=== PATIENT | female | born 1945 | race African-American/Black ===

== ENCOUNTER 2017-05-26 16:10 | Emergency (ER) | payer OTHER, MEDICAID ==
[~2017-05-26] VITALS: Ht 162.6 cm; Wt 108.9 kg
[~2017-05-26 16:10] MED LIST: BENA10TA4; FURO-570; OMEP20EC4; [UNRECOGNIZED DRUG - CODE]
[2017-05-26 16:20] VITALS: BP 136/93
[2017-05-26 16:59] LABS: BASOPHILS # (AUTO) 0.3 K/uL (0.00-0.22); EOSINOPHILS # (AUTO) 0.1 K/uL (0-0.4); HEMATOCRIT 41.4 % (36-48); HEMOGLOBIN 13.3 g/dL (12.0-16.0); LYMPHOCYTES # (AUTO) 1.5 K/uL (2.5-16.5); MEAN CORPUSCULAR HEMOGLOBIN 27 pg (27-31); MEAN CORPUSCULAR HGB CONC 32 g/dL (33-37); MEAN CORPUSCULAR VOLUME 85 fL (80-94); MONOCYTES # (AUTO) 0.5 K/uL (0.8-1.0); NEUTROPHILS # (AUTO) 3.6 K/uL (1.8-7.7); PLATELET COUNT (AUTO) 175 K/uL (140-450); RED BLOOD CELL COUNT(AUTO) 4.89 MIL/uL (4.20-5.40); RED CELL DISTRIBUTION WIDTH 14.6 % (11.6-13.7)
[2017-05-26 17:12] LABS: CALCIUM 10.5 mg/dL (8.5-10.1); CARBON DIOXIDE 25.9 mmol/L (21-32); CHLORIDE 106 mmol/L (98-107); CREATININE 1.2 mg/dL (0.6-1.3); GLUCOSE 191 mg/dL (74-106); POTASSIUM 3.9 mmol/L (3.5-5.1); SODIUM SERUM 141 mmol/L (136-145); UREA NITROGEN, BLOOD 12 mg/dL (7-18)
--- NOTE | 2017-05-26 17:17 | NUR ---
PT BIBA TO BED AT THIS TIME.
[2017-05-26 17:25] LABS: ALANINE AMINOTRANSFERASE 12 U/L (14-59); ALBUMIN 3.5 g/dL (3.4-5.0); ALKALINE PHOSPHATASE 86 U/L (46-116); ASPARTATE AMINOTRANSFERASE 12 U/L (15-37); TOTAL BILIRUBIN 0.8 mg/dL (0.0-1.0); TOTAL PROTEIN, SERUM 7.1 g/dL (6.4-8.2)
--- NOTE | 2017-05-26 17:26 | NUR ---
PT BIBA FROM [facility] FOR C/O GENERAL MALAISE X1 HOUR. HX HTN AND BORDERLINE DM;PER PT SHE WAS IN A SALON WHEN SUDDENLY SHE FEELS HOT;SHE WENT TO RESTROOM;NEPHEW WENT TO SEE HER BECAUSE SHE'S IN THE RESTROOM FOR TOO LONG;NEPHEW FOUND ON THE RESTROOM UNCONCIOUS;PT STATES SHE CAN'RT REMEMBER WHAT HAPPENED;DENIES N/V/D; SKIN IS PINK/WARM/DRY; AAOX4 WITH EVEN AND STEADY GAIT; LUNGS CLEAR BL; HR EVEN AND REGULAR; PT DENIES ANY FEVER, CP, SOB, OR COUGH AT THIS TIME; PATIENT STATES PAIN OF 0/10 AT THIS TIME; VSS; PATIENT POSITIONED FOR COMFORT; HOB ELEVATED; BEDRAILS UP X2; BED DOWN. ALL MONITORS IN PLACE.ER MADE AWARE OF PT STATUS.
--- NOTE | 2017-05-26 17:27 | NUR ---
XRAY AT [facility].
[2017-05-26 18:05] LABS: APPEARANCE,URINE CLEAR (CLEAR); BILIRUBIN,URINE NEGATIVE (NEGATIVE); BLOOD, URINE NEGATIVE (NEGATIVE); LEUKOCYTE ESTERASE ,URINE NEGATIVE (NEGATIVE); NITRITE, URINE NEGATIVE (NEGATIVE); PH,URINE 5.5 (5.0-9.0); PROTEIN,URINE TRACE (NEGATIVE); UGLUCOSE NEGATIVE (NEGATIVE); UROBILINOGEN,URINE 0.2 EU/dL (0.2 - 1)
[2017-05-26 18:08] LABS: COLOR,URINE YELLOW (YELLOW)
--- NOTE | 2017-05-26 18:36 | NUR ---
PT ASKED IF THEY CAN WAIT A LITTLE BIT BECAUSE THEY ARE WAITING FOR HER DAUGHTER TO BRING HER PANTS BECAUSE SHE DON'T HAVE ONE;
[2017-05-26 18:59] VITALS: BP 145/72
--- NOTE | 2017-05-26 18:59 | NUR ---
Patient discharged with v/s stable. Written and verbal after care instructions given and explained. Patient verbalized understanding. Ambulatory with steady gait. All questions addressed prior to discharge. Advised to follow up with PMD.
== END 2017-05-26 18:59 | disposition home or self-care (01) ==
LOC: MED 16:10
DX: R53.1 Weakness (principal); I10 Essential (primary) hypertension; Z79.899 Other long term (current) drug therapy; Z79.82 Long term (current) use of aspirin
CPT/HCPCS: 36415; 71010; 80053; 81003; 82948; 84484; 85025; 93005; 99285; Q0092